=== PATIENT | male | born 1960 | race Caucasian/White ===

== ENCOUNTER 2023-02-28 20:07 | Emergency (ER) | payer OTHER ==
--- NOTE | 2023-02-28 20:13 | ERPHSYRPT ---
- History of Present Illness Time Seen by Provider: 02/28/23 20:13 Historian: patient, other Exam Limitations: no limitations Physician History: This is a 62-year-old white male patient who presents with left side flank pain that has been present for approximately 1 week and is getting worse. In the last 2 days the pain has moved into the left lower quadrant left groin area. Patient has no known history of ureterolithiasis in the past. He is on Plavix. He does have a history of hypertension and hyperlipidemia and is on Flomax daily. Patient denies chest pain. He denies shortness of breath. He denies vomiting and diarrhea. Activities at Onset: none Quality: sharpness, stabbing Abdominal Pain Onset Location: LLQ, flank (Left side) Pain Radiation: LLQ Severity of Pain-Max: moderate Severity of Pain-Current: moderate Modifying Factors: Improves With: nothing Associated Symptoms: denies symptoms Previous symptoms: no prior history Allergies/Adverse Reactions: No Known Drug Allergies Allergy (Unverified 02/28/23 20:33) Home Medications: Albuterol Sulfate [Proair Respiclick] 2 puffs IH Q6H PRN PRN 02/28/23 [History] Amlodipine Besylate 10 mg PO DAILY 02/28/23 [History] Aspirin 1 tab PO DAILY 02/28/23 [History] Atorvastatin Calcium 1 tab PO DAILY 02/28/23 [History] Clopidogrel Bisulfate [Clopidogrel] 1 tab PO DAILY 02/28/23 [History] Gabapentin 1,600 mg PO HS 02/28/23 [History] Gabapentin 800 mg PO BID 02/28/23 [History] Lisinopril 10 mg [Zestril 10 MG] 1 tab PO DAILY 02/28/23 [History] Metoprolol Succinate 100 mg [Toprol Xl 100 MG] 100 mg PO DAILY 02/28/23 [History] Sertraline HCl [Zoloft] 25 mg PO DAILY 02/28/23 [History] Tamsulosin HCl 0.4 mg [Flomax 0.4 MG] 1 tab PO DAILY 02/28/23 [History] Topiramate 25 mg PO DAILY 02/28/23 [History] Travel Risk - International Travel Have you traveled outside of the country in past 3 weeks: No - Coronavirus Screening Are you exhibiting any of the following symptoms?: No Close contact with a COVID-19 positive Pt in past 14-21 Days: No - Review of Systems Constitutional: No Symptoms Eyes: No Symptoms Ears, Nose, & Throat: No Symptoms Respiratory: No Symptoms Cardiac: No Symptoms Abdominal/Gastrointestinal: Abdominal Pain Genitourinary Symptoms: Hematuria, Flank Pain (Lower quadrant left flank) Skin: No Symptoms Neurological: No Symptoms Psychological: No Symptoms Endocrine: No Symptoms Hematologic/Lymphatic: No Symptoms Immunological/Allergic: No Symptoms All Other Systems: Reviewed and Negative - Past Medical History Pertinent Past Medical History: Yes - Past Surgical History Past Surgical History: Yes - Nursing Vital Signs Nursing Vital Signs: Initial Vital Signs Temperature 98.0 F 02/28/23 20:21 Pulse Rate 50 L 02/28/23 20:21 Respiratory Rate 18 02/28/23 20:21 Blood Pressure 160/84 02/28/23 20:21 O2 Sat by Pulse Oximetry 97 02/28/23 20:21 Pain Scale Pain Intensity [Left Lower 8 Abdomen] Pain Intensity 10 - Physical Exam General Appearance: mild distress, alert, anxiety, thin Eye Exam: PERRL/EOMI, eyes nml inspection Ears, Nose, Throat Exam: normal ENT inspection, moist mucous membranes Neck Exam: normal inspection, non-tender, supple, full range of motion Respiratory Exam: normal breath sounds, lungs clear, airway intact, No chest tenderness, No respiratory distress Cardiovascular Exam: regular rate/rhythm, normal heart sounds, normal peripheral pulses Gastrointestinal/Abdomen Exam: soft, normal bowel sounds, tenderness (Left lower quadrant), guarding Rectal Exam: deferred Back Exam: normal inspection, normal range of motion, CVA tenderness, No vertebral tenderness (Left side) Extremity Exam: normal inspection, normal range of motion, pelvis stable Neurologic Exam: alert, oriented x 3, cooperative, 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, normal mood/affect, nml cerebellar function, nml station & gait, sensation nml Skin Exam: normal color, warm, dry Lymphatic Exam: No adenopathy SpO2 Interpretation: normal O2 Delivery: Room Air - Course Nursing assessment & vital signs reviewed: Yes Ordered Tests: Active Orders 24 hr Category Date Time Status IV Insertion STAT Care 02/28/23 20:36 Active ABDOMEN AND PELVIS W/0 CONTRAS [CT] Stat Exams 02/28/23 20:37 Completed AMYLASE Stat Lab 02/28/23 20:51 Completed CBC W DIFF Stat Lab 02/28/23 20:51 Completed CMP Stat Lab 02/28/23 20:51 Completed LIPASE Stat Lab 02/28/23 20:51 Completed UA W/RFX UR CULTURE Stat Lab 02/28/23 20:56 Completed Medication Summary Discontinued Medications Generic Name Dose Route Start Last Admin Trade Name Seb PRN Reason Stop Dose Admin Hydromorphone HCl 0.5 mg 02/28/23 21:12 02/28/23 21:23 Hydromorphone 1 Mg/1ml Inj IV 02/28/23 21:13 0.5 mg STAT ONE Administration Hydromorphone HCl Confirm 02/28/23 21:14 Hydromorphone 1 Mg/1ml Inj Administered 02/28/23 21:15 Dose 1 mg .ROUTE .STK-MED ONE Sodium Chloride Confirm 02/28/23 20:51 Sodium Chloride 0.9% 1000 Ml Administered 02/28/23 20:52 Dose 1,000 mls @ ud .ROUTE .STK-MED ONE Ondansetron HCl 4 mg 02/28/23 21:12 02/28/23 21:23 Ondansetron Hcl 4 Mg/2 Ml Vial IV 02/28/23 21:13 4 mg STAT ONE Administration Ondansetron HCl Confirm 02/28/23 21:13 Ondansetron Hcl 4 Mg/2 Ml Vial Administered 02/28/23 21:14 Dose 4 mg .ROUTE .STK-MED ONE Lab/Rad Data: Laboratory Result Diagrams 02/28/23 20:51 02/28/23 20:51 Laboratory Results 02/28/23 02/28/23 02/28/23 Range/Units 20:56 20:51 20:51 WBC 7.2 (4.0-10.5) x10^3/uL RBC 4.33 (4.1-5.6) x10^6/uL Hgb 13.3 (12.5-18.0) g/dL Hct 39.7 L (42-50) % MCV 91.7 (78-100) fL MCH 30.7 (26-32) pg MCHC 33.5 (32-36) g/dL RDW 14.2 H (11.5-14.0) % Plt Count 212 (150-450) x10^3/uL MPV 10.8 (7.5-11.0) fL Gran % 64.6 (36.0-66.0) % Immature Gran % (Auto) 0.3 (0.00-0.4) % Nucleat RBC Rel Count 0.0 (0.00-0.1) % Eos # (Auto) 0.30 (0-0.5) x10^3/uL Immature Gran # (Auto) 0.02 (0.00-0.03) x10^3u/L Absolute Lymphs (auto) 1.54 (1.0-4.6) x10^3/uL Absolute Monos (auto) 0.60 (0.0-1.3) x10^3/uL Absolute Nucleated RBC 0.00 (0.00-0.01) x10^3u/L Lymphocytes % 21.4 L (24.0-44.0) % Monocytes % 8.3 (0.0-12.0) % Eosinophils % 4.2 (0.00-5.0) % Basophils % 1.2 (0.0-0.4) % Absolute Granulocytes 4.66 (1.4-6.9) x10^3/uL Basophils # 0.09 (0-0.4) x10^3/uL Sodium 141 (137-145) mmol/L Potassium 3.7 (3.5-5.1) mmol/L Chloride 110 H (98-107) mmol/L Carbon Dioxide 21 L (22-30) mmol/L Anion Gap 14.2 (5-15) MEQ/L BUN 20 (9-20) mg/dL Creatinine 1.33 H (0.66-1.25) mg/dL Estimated GFR 57.5 ML/MIN Glucose 108 H (74-106) mg/dL Calcium 8.7 (8.4-10.2) mg/dL Total Bilirubin 0.50 (0.2-1.3) mg/dL AST 24 (17-59) U/L ALT 18 (0-50) U/L Alkaline Phosphatase 92 (38-126) U/L Serum Total Protein 6.8 (6.3-8.2) g/dL Albumin 3.8 (3.5-5.0) g/dL Amylase 91 (30-110) U/L Lipase 233 (23-300) U/L Urine Color Dark Yellow (Yellow) Urine Appearance Clear (Clear) Urine pH 5.5 (4.6-8.0) Ur Specific [place] >=1.030 A (1.005-1.030) Urine Protein Trace A (Negative) Urine Glucose (UA) Negative (Negative) mg/dL Urine Ketones Negative (Negative) Urine Blood Negative (Negative) Urine Nitrite Negative (Negative) Urine Bilirubin Negative (Negative) Urine Urobilinogen 1.0 A (0.2) mg/dL Ur Leukocyte Esterase Negative (Negative) U Hyaline Cast (Auto) NONE SEEN (0-2) /LPF Urine Microscopic RBC 0-2 (0-5) /HPF Urine Microscopic WBC 0-2 (0-5) /HPF Ur Epithelial Cells None Seen (None Seen) /HPF Urine Bacteria None Seen (None Seen) /HPF Urine Culture Reflexed NO (NO) - Progress Progress: improved, pain not gone completely, re-examined Progress Note: 02/28/23 22:27 CAT scan of the abdomen pelvis without contrast shows a few enlarged left para-a ortic lymph nodes present. The largest measures 1.2 cm and requires follow-up. No other acute intra-abdominal or intrapelvic findings noted. This patient's medical issue is 1 of moderate complexity. The level of complexity and the work-up performed is based on the review of the patient's past medical history, review of the patient's medication list, review of the patient's drug allergy list, history present illness and physical findings on examination. The work-up includes CT scan of the abdomen pelvis, placement of intravenous line, infusion of normal saline solution, infusion of Zofran intravenously, infusion of Dilaudid pain medicine intravenously, CBC, CMP, amylase, lipase, urinalysis. I reviewed the above-stated results of the studies performed. There is no evidence of any acute, emergent evaluation. There is adenopathy present intra-abdominal he and this finding requires follow-up. I discussed this with the patient and his family. Medical Desision Making - Independent Historian Additional History obtained from: Child - Discussion of managment Agreed on:: Treatment plan, need for follow-up - Diagnostic Testing Diagnostic test were ordered, analyzed, and reviewed by me: Yes Radiological Interpretation: Reviewed by me, Teleradiologist Report - Risk of complications Low Risk: Low risk of morbidity from additional dx testing or treatment - Departure Departure Disposition: Home Clinical Impression: Abdominal pain, Flank pain, Intra-abdominal lymphadenopathy Condition: Stable Critical Care Time: No Referrals: Provider,Unknown [Primary Care Provider] - Follow up/PCP as directed Additional Instructions: Take your medications as prescribed. Call your primary care physician on 03/02/2023 to discuss your symptoms and the findings of swollen, enlarged lymph nodes in the abdominal cavity.
[2023-02-28] MEDS ORDERED: Sodium Chloride 0.9% 1000 ML 1,000 ML ONE (20:51)
[2023-02-28 20:56] LABS: Absolute Neutrophil Ct (ANC) 4.66 x10^3/uL (1.4-6.9); BASOPHIL % 1.2 % (0.0-0.4); Basophil (Absolute #) 0.09 x10^3/uL (0-0.4); Eosinophil % 4.2 % (0.00-5.0); Hematocrit 39.7 % (42-50); Hemoglobin 13.3 g/dL (12.5-18.0); IMMATURE GRAN # 0.02 x10^3u/L (0.00-0.03); IMMATURE GRAN % 0.3 % (0.00-0.4); Lymphocyte (Absolute #) 1.54 x10^3/uL (1.0-4.6); Lymphocytes % 21.4 % (24.0-44.0); Mean Cell Volume 91.7 fL (78-100); Mean Corpuscular Hemoglobin 30.7 pg (26-32); Mean Corpuscular Hgb Concent. 33.5 g/dL (32-36); Mean Platelet Volume 10.8 fL (7.5-11.0); Monocytes % 8.3 % (0.0-12.0); Neutrophil % 64.6 % (36.0-66.0); Platelet Count 212 x10^3/uL (150-450); Red Blood Count 4.33 x10^6/uL (4.1-5.6); Red Cell Distribution Width 14.2 % (11.5-14.0); White Blood Count 7.2 x10^3/uL (4.0-10.5)
[2023-02-28 21:06] LABS: Appearance Clear (Clear); Bacteria None Seen /HPF (None Seen); Bilirubin Negative (Negative); Blood Negative (Negative); Epithelial Cells None Seen /HPF (None Seen); Glucose, Urine Negative (Negative); Hyaline Casts NONE SEEN /LPF (0-2); Ketones Negative (Negative); Leukocyte Esterase Negative (Negative); Nitrite Negative (Negative); Ph 5.5 (4.6-8.0); Protein,Urine Dip Trace (Negative); RBC 0-2 /HPF (0-5); Specific Gravity >=1.030 (1.005-1.030); WBC 0-2 /HPF (0-5)
[2023-02-28 21:10] LABS: ALBUMIN 3.8 g/dL (3.5-5.0); ANION GAP 14.2 MEQ/L (5-15); BILIRUBIN,TOTAL 0.5 mg/dL (0.2-1.3); Calcium 8.7 mg/dL (8.4-10.2); Creatinine 1 1.33 mg/dL (0.66-1.25); EST GLOMERULAR FILTRATION RATE 57.5 ML/MIN; Potassium 3.7 mmol/L (3.5-5.1); Total Protein 6.8 g/dL (6.3-8.2)
[2023-02-28] MEDS ORDERED: Zofran 4 MG/2 ML VIAL IV ONE (21:12)
[2023-02-28] MEDS ORDERED: Hydromorphone 1 mg/ml Injection IV ONE (21:12)
[2023-02-28] MEDS ORDERED: Zofran 4 MG/2 ML VIAL ONE (21:13)
[2023-02-28] MEDS ORDERED: Hydromorphone 1 mg/ml Injection ONE (21:14)
[2023-02-28 21:16] LABS: ADD URINE CULTURE? NO (NO)
--- NOTE | 2023-02-28 21:54 | XRAY ---
CLINICAL HISTORY:LLQ abd and left flank pain; COMPARISON:None; TECHNIQUES:CT of the abdomen and pelvis was performed with axial images as well as sagittal and coronal reconstruction images without intravenous contrast. DLP: 285.66 mGy*cm. CTDI: 6.39 mGy; FINDINGS: The liver is normal in size, morphology and appears unremarkable with no intrahepatic or extrahepatic bile duct dilation. Unremarkable appearing gallbladder with no stones wall thickening or pericholecystic inflammatory changes or fluid. Unremarkable appearing pancreas. No pancreatic mass or ductal dilatation is seen. Unremarkable appearing spleen. The adrenal glands are normal. The kidneys appear unremarkable with no calculi, masses or hydronephrosis. A simple cortical cyst is noted at the mid pole of left kidney measuring 1.4 cm. The ureters are normal with no stones. Mild atherosclerotic changes in the abdominal aorta without specific evidence of aneurysm or dissection. IVC is normal. The stomach appears unremarkable. Unremarkable appearing duodenum. Small Bowel and colon are non-distended with no abnormality. No free air and no ascites. No free intraperitoneal air is seen. Enlarged left para aortic lymph nodes are noted, the largest measures 1.2 cm in short axis. No pelvic side wall lymphadenopathy. Streak artifact from the hardware prosthesis at the pubic symphysis is limiting the underlying pelvis details. Urinary bladder and prostate are grossly normal. A calcified granuloma in right lower lung. Mild degenerative changes seen in the visualized spine. IMPRESSION: Few enlarged left para-aortic lymph nodes are noted, the largest measures 1.2 cm in short axis, requires follow-up. Small left simple renal cortical cyst. Streak artefact from the hardware prosthesis at the pubic symphysis is limiting the underlying pelvis details. Urinary bladder and prostate are grossly normal. Electronically Signed by: Jv Zacarias MD. (02/28/2023 20:51:15 PHLEBOTOMY PROGRAM COORDINATOR)
[2023-02-28] MEDS ORDERED: NORCO 5/325 MG PO ONE (22:30)
[2023-02-28] MEDS ORDERED: NORCO 5/325 MG ONE (22:33)
[2023-02-28 22:41] VITALS: BP 145/85; PULSE 58; O2SAT 93
== END 2023-02-28 22:45 | disposition home or self-care (01) ==
LOC: ED 20:07
DX: R10.32 Left lower quadrant pain (principal); R59.1 Generalized enlarged lymph nodes; I10 Essential (primary) hypertension; E78.5 Hyperlipidemia, unspecified; Z79.01 Long term (current) use of anticoagulants; Z79.899 Other long term (current) drug therapy; Z20.828 Contact with and (suspected) exposure to other viral communicable diseases
CPT/HCPCS: 36000; 36415; 74176; 80053; 81001; 82150; 83690; 85025; 96374; 96375; 99284; J1170; J2405; A9270-GY

== ENCOUNTER 2024-02-14 23:13 | Inpatient (IN) | payer MEDICARE ==
[2024-02-15] MEDS ORDERED: Robitussin AC Syrup Unit Dose Cup PO PRN (00:01)
--- NOTE | 2024-02-15 00:03 | ERPHSYRPT ---
- History of Present Illness Time Seen by Provider: 02/14/24 23:50 Source: patient, family (daughter) Exam Limitations: no limitations Patient Subjective Stated Complaint: cough and chest discomfort from coughing x2 days Triage Nursing Assessment: pt ambulated into ER without diff, daughter at bedside. Pt is alert and oriented x4. Pt c/o cough with increased sob x2 days and chest discomfort when coughing. Pt has a dry, non-prod cough. Pt's lung cordero are coarse with rhonchi, wheezes and crackles noted bilat ant and post throughout. Pt is a 1ppd smoker x50 years. Physician History: Since yesterday pt has had a non-productive cough, mid chest pain only when coughing and shortness of air. Pt also c/o a frontal headache for the past 2 hours; denies vomiting, fever, diarrhea, abdominal pain. Allergies/Adverse Reactions: No Known Drug Allergies Allergy (Verified 02/14/24 23:15) Home Medications: Albuterol Sulfate [Proair Respiclick] 2 puffs IH Q6H PRN PRN 02/28/23 [History] Amlodipine Besylate 10 mg PO DAILY 02/28/23 [History] Aspirin 1 tab PO DAILY 02/28/23 [History] Atorvastatin Calcium 1 tab PO DAILY 02/28/23 [History] Clopidogrel Bisulfate [Clopidogrel] 1 tab PO DAILY 02/28/23 [History] Gabapentin 800 mg PO TID 02/28/23 [History] Lisinopril 10 mg [Zestril 10 MG] 1 tab PO DAILY 02/28/23 [History] Metoprolol Succinate 100 mg [Toprol Xl 100 MG] 100 mg PO DAILY 02/28/23 [History] Sertraline HCl [Zoloft] 25 mg PO DAILY 02/28/23 [History] Tamsulosin HCl 0.4 mg [Flomax 0.4 MG] 1 tab PO DAILY 02/28/23 [History] Topiramate 25 mg PO HS 02/28/23 [History] Levothyroxine Sodium 88 Mcg [Synthroid 88 Mcg] 1 tab PO DAILY 02/14/24 [History] Hx Tetanus, Diphtheria Vaccination/Date Given: Yes Hx Influenza Vaccination/Date Given: Yes Hx Pneumococcal Vaccination/Date Given: Yes Immunizations Up to Date: Yes Travel Risk - International Travel Have you traveled outside of the country in past 3 weeks: No - Emerging Infectious Disease Are you exhibiting symptoms associated with any current EIDs: No Symptoms: Cough: New Onset - Review of Systems Constitutional: No Fever Respiratory: Cough, Dyspnea Cardiac: Chest Pain Abdominal/Gastrointestinal: No Abdominal Pain, No Vomiting Skin: No Rash Neurological: Headache - Past Medical History Pertinent Past Medical History: Yes Neurological History: Stroke ENT History: No Pertinent History Cardiac History: Coronary Artery Disease, Hypertension, Myocardial Infarction ([place]) Respiratory History: Pneumonia Endocrine Medical History: No Pertinent History Musculoskeletal History: Arthritis, Fractures GI Medical History: GERD History: No Pertinent History Psycho-Social History: No Pertinent History Male Reproductive Disorders: No Pertinent History Other Medical History: fx pelvis. fx L3 - Past Surgical History Past Surgical History: Yes Neuro Surgical History: No Pertinent History Cardiac: Cardiac Catheterization, Internal Defibrillator Respiratory: No Pertinent History Gastrointestinal: No Pertinent History Genitourinary: No Pertinent History Musculoskeletal: Orthopedic Surgery Male Surgical History: No Pertinent History Other Surgical History: pelvic surgery with metal rods and screws. L3 surgery - Social History Smoking Status: Current every day smoker How long have you smoked: 50 yrs Exposure to second hand smoke: Yes Drug Use: marijuana Patient Lives Alone: No - Nursing Vital Signs Nursing Vital Signs: Initial Vital Signs Temperature 98.1 F 02/14/24 23:17 Pulse Rate 60 02/14/24 23:17 Respiratory Rate 28 H 02/14/24 23:17 Blood Pressure 184/88 02/14/24 23:17 O2 Sat by Pulse Oximetry 97 02/14/24 23:17 Pain Scale Pain Intensity 2 - Physical Exam General Appearance: alert Eye Exam: PERRL/EOMI Ears, Nose, Throat Exam: pharyngeal erythema, other (cerumen occlusion of left ear) Neck Exam: normal inspection Respiratory Exam: respiratory distress, airway intact, wheezing Cardiovascular Exam: normal heart sounds Gastrointestinal/Abdomen Exam: normal bowel sounds Back Exam: normal inspection Extremity Exam: No pedal edema Neurologic Exam: alert, cooperative Skin Exam: warm, dry SpO2 Interpretation: normal SpO2: 97 O2 Delivery: Room Air - Course Nursing assessment & vital signs reviewed: Yes EKG Interpreted by Me: RATE (52), Sinus Abe[place], NORMAL AXIS, Other (QTc = 382) - Radiology Exams Chest X-ray Interpretation: Interpreted by me (pneumonia) Ordered Tests: Active Orders 24 hr Category Date Time Status Taxicab Dispatcher STAT Care 02/14/24 23:59 Active EKG-ER Only STAT Care 02/14/24 23:58 Active IV Insertion STAT Care 02/14/24 23:58 Active Oxygen-ED Only Nasal Cannula 2 lpm Care 02/14/24 23:58 Active Pulse Oximetry (ED) STAT Care 02/14/24 23:58 Active CHEST 2 VIEWS (PA AND LAT) Stat Exams 02/14/24 23:59 Taken CULTURE,SPUTUM Stat Lab 02/14/24 23:59 Ordered TROPONIN Q4H Lab 02/15/24 00:07 Completed TROPONIN Q4H Lab 02/15/24 04:15 Ordered TROPONIN Q4H Lab 02/15/24 08:15 Ordered VENOUS BLOOD GAS Stat Lab 02/14/24 23:58 Completed Respiratory Therapy Assessment DAILY RT 02/15/24 00:09 Active Medication Summary Generic Name Dose Route Start Last Admin Trade Name Freq PRN Reason Stop Dose Admin Guaifenesin/Codeine Phosphate 10 ml 02/15/24 00:01 Guaifenesin/Codeine Phosphate 5 Ml Udcup PO 03/16/24 00:00 Q4H PRN PRN COUGH Sodium Chloride 1,000 mls @ 100 mls/hr 02/14/24 23:45 02/15/24 00:14 Sodium Chloride 0.9% 1000 Ml IV 03/15/24 23:44 100 mls/hr .Q10H PLACIDO Administration Discontinued Medications Generic Name Dose Route Start Last Admin Trade Name Freq PRN Reason Stop Dose Admin Albuterol Sulfate 2.5 mg 02/14/24 23:58 02/15/24 00:10 Albuterol Sulfate 2.5 Mg/3 Ml Neb IH 02/14/24 23:59 2.5 mg STAT ONE Administration Albuterol Sulfate Confirm 02/15/24 00:06 Albuterol Sulfate 2.5 Mg/3 Ml Neb Administered 02/15/24 00:07 Dose 2.5 mg IH .STK-MED ONE Ceftriaxone Sodium 1 gm in 100 mls @ 200 mls/hr 02/14/24 23:58 02/15/24 00:54 Rocephin 1 Gm / 100 Ml Nacl IV 02/15/24 00:27 Infused STAT ONE Infusion Azithromycin 500 mg in 250 mls @ 250 mls/hr 02/14/24 23:58 02/15/24 00:47 Zithromax 500 Mg/ 250 Ml Nacl Premix IV 02/15/24 00:57 250 ml/hr STAT STA 250 mls/hr Administration Ceftriaxone Sodium Confirm 02/15/24 00:12 Rocephin 1 Gm / 100 Ml Nacl Administered 02/15/24 00:13 Dose 1 gm in 100 mls @ ud IV .STK-MED ONE Azithromycin Confirm 02/15/24 00:43 Zithromax 500 Mg/ 250 Ml Nacl Premix Administered 02/15/24 00:44 Dose 500 mg in 250 mls @ ud IV .STK-MED ONE Lab/Rad Data: Laboratory Result Diagrams 02/14/24 00:07 02/14/24 00:07 Laboratory Results 02/15/24 02/15/24 02/15/24 Range/Units 00:20 00:15 00:15 WBC (4.0-10.5) x10^3/uL RBC (4.1-5.6) x10^6/uL Hgb (12.5-18.0) g/dL Hct (42-50) % MCV (78-100) fL MCH (26-32) pg MCHC (32-36) g/dL RDW (11.5-14.0) % Plt Count (150-450) x10^3/uL MPV (7.5-11.0) fL Gran % (36.0-66.0) % Immature Gran % (Auto) (0.00-0.4) % Nucleat RBC Rel Count (0.00-0.1) % Eos # (Auto) (0-0.5) x10^3/uL Immature Gran # (Auto) (0.00-0.03) x10^3u/L Absolute Lymphs (auto) (1.0-4.6) x10^3/uL Absolute Monos (auto) (0.0-1.3) x10^3/uL Absolute Nucleated RBC (0.00-0.01) x10^3u/L Lymphocytes % (24.0-44.0) % Monocytes % (0.0-12.0) % Eosinophils % (0.00-5.0) % Basophils % (0.0-0.4) % Absolute Granulocytes (1.4-6.9) x10^3/uL Basophils # (0-0.4) x10^3/uL pO2/FiO2 Ratio 21.0 % VBG pH 7.40 (7.32-7.42) VBG pCO2 at Pat Temp 35 L (42-55) mm/Hg VBG pO2 at Pat Temp 48 H (25-40) mm/Hg VBG HCO3 21.7 L (22-28) meq/L VBG O2 Sat (Buddy) 86.3 L (95-100) VBG Base Excess -2.5 L (-2.0-2.0) VBG Hemoglobin 14.0 VBG Carboxyhemoglobin 7.0 H* (0.0-6.9) % T HGB POC Potassium 3.2 L (3.5-5.1) Sodium (135-145) mmol/L Potassium (3.5-5.1) mmol/L Chloride (98-107) mmol/L Carbon Dioxide (22-30) mmol/L Anion Gap (5-15) MEQ/L BUN (9-20) mg/dL Creatinine (0.66-1.25) mg/dL Estimated GFR ML/MIN Glucose (74-106) mg/dL Calcium (8.4-10.2) mg/dL Total Bilirubin (0.2-1.3) mg/dL AST (17-59) U/L ALT (0-50) U/L Alkaline Phosphatase (38-126) U/L Troponin I (0.000-0.033) ng/mL Serum Total Protein (6.3-8.2) g/dL Albumin (3.5-5.0) g/dL Influenza Type A Ag NEGATIVE (NEGATIVE) Influenza Type B Ag NEGATIVE (NEGATIVE) RSV (PCR) NEGATIVE (NEGATIVE) SARS-CoV-2 (PCR) NEGATIVE (NEGATIVE) Group A Strep Antibody NOT DETECTED (NEGATIVE) 02/15/24 02/14/24 02/14/24 Range/Units 00:07 00:07 00:07 WBC 8.3 (4.0-10.5) x10^3/uL RBC 4.49 (4.1-5.6) x10^6/uL Hgb 14.0 (12.5-18.0) g/dL Hct 40.6 L (42-50) % MCV 90.4 (78-100) fL MCH 31.2 (26-32) pg MCHC 34.5 (32-36) g/dL RDW 14.1 H (11.5-14.0) % Plt Count 207 (150-450) x10^3/uL MPV 11.0 (7.5-11.0) fL Gran % 69.3 H (36.0-66.0) % Immature Gran % (Auto) 0.2 (0.00-0.4) % Nucleat RBC Rel Count 0.0 (0.00-0.1) % Eos # (Auto) 0.22 (0-0.5) x10^3/uL Immature Gran # (Auto) 0.02 (0.00-0.03) x10^3u/L Absolute Lymphs (auto) 1.61 (1.0-4.6) x10^3/uL Absolute Monos (auto) 0.66 (0.0-1.3) x10^3/uL Absolute Nucleated RBC 0.00 (0.00-0.01) x10^3u/L Lymphocytes % 19.3 L (24.0-44.0) % Monocytes % 7.9 (0.0-12.0) % Eosinophils % 2.6 (0.00-5.0) % Basophils % 0.7 (0.0-0.4) % Absolute Granulocytes 5.76 (1.4-6.9) x10^3/uL Basophils # 0.06 (0-0.4) x10^3/uL pO2/FiO2 Ratio % VBG pH (7.32-7.42) VBG pCO2 at Pat Temp (42-55) mm/Hg VBG pO2 at Pat Temp (25-40) mm/Hg VBG HCO3 (22-28) meq/L VBG O2 Sat (Buddy) (95-100) VBG Base Excess (-2.0-2.0) VBG Hemoglobin VBG Carboxyhemoglobin (0.0-6.9) % T HGB POC Potassium (3.5-5.1) Sodium 142 (135-145) mmol/L Potassium 3.5 (3.5-5.1) mmol/L Chloride 112 H (98-107) mmol/L Carbon Dioxide 18 L (22-30) mmol/L Anion Gap 15.0 (5-15) MEQ/L BUN 18 (9-20) mg/dL Creatinine 1.22 (0.66-1.25) mg/dL Estimated GFR 65.8 ML/MIN Glucose 118 H (74-106) mg/dL Calcium 9.1 (8.4-10.2) mg/dL Total Bilirubin 0.80 (0.2-1.3) mg/dL AST 25 (17-59) U/L ALT 20 (0-50) U/L Alkaline Phosphatase 90 (38-126) U/L Troponin I < 0.012 (0.000-0.033) ng/mL Serum Total Protein 6.9 (6.3-8.2) g/dL Albumin 4.0 (3.5-5.0) g/dL Influenza Type A Ag (NEGATIVE) Influenza Type B Ag (NEGATIVE) RSV (PCR) (NEGATIVE) SARS-CoV-2 (PCR) (NEGATIVE) Group A Strep Antibody (NEGATIVE) - Progress Progress: improved Discussed with : Other (Spoke with and discussed case with Dr. Ritter([id number]) - obs) Will see patient in: hospital (observation) Counseled pt/family regarding: lab results, diagnosis, rad results Medical Desision Making - Diagnostic Testing Diagnostic test were ordered, analyzed, and reviewed by me: Yes Radiological Interpretation: Interpreted by me - Departure Departure Disposition: Observation Clinical Impression: Respiratory distress, Pneumonia Condition: Stable Critical Care Time: No Referrals: DOCTOR,NO FAMILY [Primary Care Provider] - Follow up/PCP as directed
[2024-02-15] MEDS ORDERED: PROVENTIL 2.5 MG/3 ML NEB IH ONE (00:06)
[2024-02-15 00:09] LABS: Absolute Neutrophil Ct (ANC) 5.76 x10^3/uL (1.4-6.9); BASOPHIL % 0.7 % (0.0-0.4); Basophil (Absolute #) 0.06 x10^3/uL (0-0.4); Eosinophil % 2.6 % (0.00-5.0); Eosinophil (Absolute #) 0.22 x10^3/uL (0-0.5); Hematocrit 40.6 % (42-50); IMMATURE GRAN # 0.02 x10^3u/L (0.00-0.03); IMMATURE GRAN % 0.2 % (0.00-0.4); Lymphocyte (Absolute #) 1.61 x10^3/uL (1.0-4.6); Lymphocytes % 19.3 % (24.0-44.0); Mean Cell Volume 90.4 fL (78-100); Mean Corpuscular Hemoglobin 31.2 pg (26-32); Mean Corpuscular Hgb Concent. 34.5 g/dL (32-36); Monocyte (Absolute #) 0.66 x10^3/uL (0.0-1.3); Monocytes % 7.9 % (0.0-12.0); Neutrophil % 69.3 % (36.0-66.0); Platelet Count 207 x10^3/uL (150-450); Red Blood Count 4.49 x10^6/uL (4.1-5.6); Red Cell Distribution Width 14.1 % (11.5-14.0); White Blood Count 8.3 x10^3/uL (4.0-10.5)
[2024-02-15] MEDS: PROVENTIL 2.5 MG/3 ML NEB IH ONE (00:10)
[2024-02-15] MEDS ORDERED: ROCEPHIN 1 GM / 100 ML NaCl 1 GM/100 ML IVPB IV ONE (00:12)
[2024-02-15] MEDS: Sodium Chloride 0.9% 1000 ML 1,000 ML IV SCH (00:14)
[2024-02-15 00:16] LABS: BILIRUBIN,TOTAL 0.8 mg/dL (0.2-1.3); Calcium 9.1 mg/dL (8.4-10.2); Creatinine 1 1.22 mg/dL (0.66-1.25); EST GLOMERULAR FILTRATION RATE 65.8 ML/MIN; Potassium 3.5 mmol/L (3.5-5.1); Total Protein 6.9 g/dL (6.3-8.2)
[2024-02-15] MEDS: ROCEPHIN 1 GM / 100 ML NaCl 1 GM/100 ML IVPB IV ONE (00:17)
[2024-02-15 00:30] LABS: VBG BASE EXCESS -2.5 (-2.0-2.0); VBG HCO3- 21.7 meq/L (22-28); VBG O2 SATURATION 86.3 (95-100); VBG POTASSIUM 3.2 (3.5-5.1); VBG pH 7.4 (7.32-7.42)
[2024-02-15] MEDS ORDERED: Zithromax 500 MG/ 250 ML NaCl Premix 500 MG/250 ML IVPB IV ONE (00:43)
[2024-02-15] MEDS: Zithromax 500 MG/ 250 ML NaCl Premix 500 MG/250 ML IVPB IV STA (00:47)
[2024-02-15 01:00] LABS: INFLUENZA A NEGATIVE (NEGATIVE); INFLUENZA B NEGATIVE (NEGATIVE); RESPIRATORY SYNCTIAL VIRUS NEGATIVE (NEGATIVE); SARS-CoV-2 Xpert Express NEGATIVE (NEGATIVE)
--- NOTE | 2024-02-15 02:09 | PCM.HP ---
History of Present Illness - Chief Complaint Chief Complaint: cough Date: 02/15/24 History of Present Illness: Mr. MORENO is a 63 year old male with a past medical history significant for hypertension, hyperlipidemia, coronary artery disease, neuropathy and chronic tobacco use who presents to the hospital with complaints of worsening shortness of breath associated with some chest pain that is worsened with coughing. He denies any fever/chills but does report a headache for the past couple of days. He denies any productive sputum and upon initial eval, he was found to have some wheezing that persisted despite nebulizer treatment. Initial labs did not demonstrate an elevated WBC but did show a mildly elevated creatinine with low bicarb. No nausea, vomiting or diarrhea. No dysuria, hematuria or foamy urine. CXR demonstrated an infiltrate suspicious for pneumonia, so he was given antibiotics and recommended for admission. He does report having a friend come by a few days ago, and is now hospitalized with pneumonia. - Review of Systems Constitutional: No Fever, No Chills Eyes: No Vision Changes Ears, Nose, & Throat: No Throat Swelling Respiratory: Cough, No Orthopnea, No Stridor Cardiac: Chest Pain, No Edema, No Palpitations Abdominal/Gastrointestinal: No Abdominal Pain, No Nausea, No Vomiting, No Diarrhea Genitourinary Symptoms: No Dysuria, No Frequency, No Hematuria Musculoskeletal: No Arthralgias, No Neck Pain Skin: No Rash Neurological: Headache Psychological: No Suicidal Ideations Medications & Allergies Home Medications: Home Medication List Albuterol Sulfate [Proair Respiclick] 2 puffs IH Q6H PRN PRN 02/28/23 [History Confirmed 02/14/24] Amlodipine Besylate 10 mg PO DAILY 02/28/23 [History Confirmed 02/14/24] Aspirin 1 tab PO DAILY 02/28/23 [History Confirmed 02/14/24] Atorvastatin Calcium 1 tab PO DAILY 02/28/23 [History Confirmed 02/14/24] Clopidogrel Bisulfate [Clopidogrel] 1 tab PO DAILY 02/28/23 [History Confirmed 02/14/24] Gabapentin 800 mg PO TID 02/28/23 [History Confirmed 02/14/24] Lisinopril 10 mg [Zestril 10 MG] 1 tab PO DAILY 02/28/23 [History Confirmed 02/14/24] Metoprolol Succinate 100 mg [Toprol Xl 100 MG] 100 mg PO DAILY 02/28/23 [History Confirmed 02/14/24] Sertraline HCl [Zoloft] 25 mg PO DAILY 02/28/23 [History Confirmed 02/14/24] Tamsulosin HCl 0.4 mg [Flomax 0.4 MG] 1 tab PO DAILY 02/28/23 [History Confirmed 02/14/24] Topiramate 25 mg PO HS 02/28/23 [History Confirmed 02/14/24] Levothyroxine Sodium 88 Mcg [Synthroid 88 Mcg] 1 tab PO DAILY 02/14/24 [History Confirmed 02/14/24] Allergies/Adverse Reactions: Allergies Allergy/AdvReac Type Severity Reaction Status Date / Time No Known Drug Allergies Allergy Verified 02/14/24 23:15 - Past Medical History Past Medical History: Yes Neurological History: Stroke ENT History: No Pertinent History Cardiac History: Coronary Artery Disease, Hypertension, Myocardial Infarction ([place]) Respiratory History: Pneumonia Endocrine Medical History: No Pertinent History Musculoskelatal History: Arthritis, Fractures GI Medical History: GERD History: No Pertinent History Pyscho-Social History: No Pertinent History Male Reproductive Disorders: No Pertinent History Comment: fx pelvis. fx L3 - Past Surgical History Past Surgical History: Yes Neuro Surgical History: No Pertinent History Cardiac History: Cardiac Catheterization, Internal Defibrillator Respiratory Surgery: No Pertinent History GI Surgical History: No Pertinent History Genitourinary Surgical Hx: No Pertinent History Musculskeletal Surgical Hx: Orthopedic Surgery Male Surgical History: No Pertinent History Other Surgical History: pelvic surgery with metal rods and screws. L3 surgery - Social History Smoking Status: Current every day smoker How long have you smoked: 50 yrs Exposure to second hand smoke: Yes Alcohol: None Drug Use: marijuana - Social Determinants of Health Will the patient participate in the screening: Yes Do you worry about a steady place to live?: No Do you have any problems with any of the following?: No known problems In the past 12 months,have you had to go without utilities?: No Have you or anyone in your house had to go without enough: No Transportation Issues: No Has anyone in your support network made you feel unsafe?: No - Physical Exam Vital Signs: Vital Signs - 24 hr Temp Pulse Resp BP BP Pulse Ox 02/15/24 01:50 97 02/15/24 01:01 72 22 145/77 97 02/15/24 00:30 59 L 30 H 175/87 96 02/15/24 00:29 59 L 26 H 168/84 96 02/15/24 00:10 95 02/15/24 00:00 49 L 22 147/82 98 02/14/24 23:58 97 02/14/24 23:30 48 L 25 H 177/90 95 02/14/24 23:21 28 H 97 02/14/24 23:17 98.1 F 60 28 H 184/88 97 General Appearance: no apparent distress Neurologic Exam: alert Ears, Nose, Throat Exam: dry mucous membranes Neck Exam: normal inspection, supple Respiratory Exam: wheezing, No respiratory distress Cardiovascular Exam: regular rate/rhythm Gastrointestinal/Abdomen Exam: soft Extremity Exam: No pedal edema, No swelling Skin Exam: normal color, No rash Results - Labs Lab/Micro Results: Lab Results-Last 24 Hours 02/14/24 02/14/24 02/15/24 Range/Units 00:07 00:07 00:07 WBC 8.3 (4.0-10.5) x10^3/uL RBC 4.49 (4.1-5.6) x10^6/uL Hgb 14.0 (12.5-18.0) g/dL Hct 40.6 L (42-50) % MCV 90.4 (78-100) fL MCH 31.2 (26-32) pg MCHC 34.5 (32-36) g/dL RDW 14.1 H (11.5-14.0) % Plt Count 207 (150-450) x10^3/uL MPV 11.0 (7.5-11.0) fL Gran % 69.3 H (36.0-66.0) % Immature Gran % (Auto) 0.2 (0.00-0.4) % Nucleat RBC Rel Count 0.0 (0.00-0.1) % Eos # (Auto) 0.22 (0-0.5) x10^3/uL Immature Gran # (Auto) 0.02 (0.00-0.03) x10^3u/L Absolute Lymphs (auto) 1.61 (1.0-4.6) x10^3/uL Absolute Monos (auto) 0.66 (0.0-1.3) x10^3/uL Absolute Nucleated RBC 0.00 (0.00-0.01) x10^3u/L Lymphocytes % 19.3 L (24.0-44.0) % Monocytes % 7.9 (0.0-12.0) % Eosinophils % 2.6 (0.00-5.0) % Basophils % 0.7 (0.0-0.4) % Absolute Granulocytes 5.76 (1.4-6.9) x10^3/uL Basophils # 0.06 (0-0.4) x10^3/uL pO2/FiO2 Ratio % VBG pH (7.32-7.42) VBG pCO2 at Pat Temp (42-55) mm/Hg VBG pO2 at Pat Temp (25-40) mm/Hg VBG HCO3 (22-28) meq/L VBG O2 Sat (Buddy) (95-100) VBG Base Excess (-2.0-2.0) VBG Hemoglobin VBG Carboxyhemoglobin (0.0-6.9) % T HGB POC Potassium (3.5-5.1) Sodium 142 (135-145) mmol/L Potassium 3.5 (3.5-5.1) mmol/L Chloride 112 H (98-107) mmol/L Carbon Dioxide 18 L (22-30) mmol/L Anion Gap 15.0 (5-15) MEQ/L BUN 18 (9-20) mg/dL Creatinine 1.22 (0.66-1.25) mg/dL Estimated GFR 65.8 ML/MIN Glucose 118 H (74-106) mg/dL Calcium 9.1 (8.4-10.2) mg/dL Total Bilirubin 0.80 (0.2-1.3) mg/dL AST 25 (17-59) U/L ALT 20 (0-50) U/L Alkaline Phosphatase 90 (38-126) U/L Troponin I < 0.012 (0.000-0.033) ng/mL Serum Total Protein 6.9 (6.3-8.2) g/dL Albumin 4.0 (3.5-5.0) g/dL Influenza Type A Ag (NEGATIVE) Influenza Type B Ag (NEGATIVE) RSV (PCR) (NEGATIVE) SARS-CoV-2 (PCR) (NEGATIVE) Group A Strep Antibody (NEGATIVE) 02/15/24 02/15/24 02/15/24 Range/Units 00:15 00:15 00:20 WBC (4.0-10.5) x10^3/uL RBC (4.1-5.6) x10^6/uL Hgb (12.5-18.0) g/dL Hct (42-50) % MCV (78-100) fL MCH (26-32) pg MCHC (32-36) g/dL RDW (11.5-14.0) % Plt Count (150-450) x10^3/uL MPV (7.5-11.0) fL Gran % (36.0-66.0) % Immature Gran % (Auto) (0.00-0.4) % Nucleat RBC Rel Count (0.00-0.1) % Eos # (Auto) (0-0.5) x10^3/uL Immature Gran # (Auto) (0.00-0.03) x10^3u/L Absolute Lymphs (auto) (1.0-4.6) x10^3/uL Absolute Monos (auto) (0.0-1.3) x10^3/uL Absolute Nucleated RBC (0.00-0.01) x10^3u/L Lymphocytes % (24.0-44.0) % Monocytes % (0.0-12.0) % Eosinophils % (0.00-5.0) % Basophils % (0.0-0.4) % Absolute Granulocytes (1.4-6.9) x10^3/uL Basophils # (0-0.4) x10^3/uL pO2/FiO2 Ratio 21.0 % VBG pH 7.40 (7.32-7.42) VBG pCO2 at Pat Temp 35 L (42-55) mm/Hg VBG pO2 at Pat Temp 48 H (25-40) mm/Hg VBG HCO3 21.7 L (22-28) meq/L VBG O2 Sat (Buddy) 86.3 L (95-100) VBG Base Excess -2.5 L (-2.0-2.0) VBG Hemoglobin 14.0 VBG Carboxyhemoglobin 7.0 H* (0.0-6.9) % T HGB POC Potassium 3.2 L (3.5-5.1) Sodium (135-145) mmol/L Potassium (3.5-5.1) mmol/L Chloride (98-107) mmol/L Carbon Dioxide (22-30) mmol/L Anion Gap (5-15) MEQ/L BUN (9-20) mg/dL Creatinine (0.66-1.25) mg/dL Estimated GFR ML/MIN Glucose (74-106) mg/dL Calcium (8.4-10.2) mg/dL Total Bilirubin (0.2-1.3) mg/dL AST (17-59) U/L ALT (0-50) U/L Alkaline Phosphatase (38-126) U/L Troponin I (0.000-0.033) ng/mL Serum Total Protein (6.3-8.2) g/dL Albumin (3.5-5.0) g/dL Influenza Type A Ag NEGATIVE (NEGATIVE) Influenza Type B Ag NEGATIVE (NEGATIVE) RSV (PCR) NEGATIVE (NEGATIVE) SARS-CoV-2 (PCR) NEGATIVE (NEGATIVE) Group A Strep Antibody NOT DETECTED (NEGATIVE) Microbiology 02/14/24 23:59 Blood Culture Gram Stain - Final Blood Not Reportable - Radiology Impressions Radiology Exams & Impressions: Radiology Procedures Category Date Time Status CHEST 2 VIEWS (PA AND LAT) Stat Exams 02/14/24 23:59 Taken - Other Procedures and Tests Respiratory Therapy 02/15/24 00:09 Respiratory Therapy Assessment DAILY Assessment/Plan (1) Pneumonia Current Visit: No Status: Acute Assessment & Plan: Community acquired pneumonia likely exacerbated by tobacco use 1. Admit to observation status 2. Sputum culture 3. Empiric antibiotics with Rocephin/Zithromax 4. Supplemental oxygen 5. Duonebs 6. Tobacco cessation 7. DVT/GI prophylaxis Code(s): J18.9 - PNEUMONIA, UNSPECIFIED ORGANISM (2) Cough Current Visit: No Status: Acute Assessment & Plan: Likely from pneumonia but may also be exacerbated by JOHN 1. Duonebs 2. Tobacco cessation 3. Hold JOHN Code(s): R05.9 - COUGH, UNSPECIFIED (3) Acute kidney injury Current Visit: No Status: Acute Assessment & Plan: Creatinine slightly elevated at 1.18 may be due to prerenal azotemia but may also reflect underlying CKD from hypertension 1. Encourage PO intake 2. Follow I/Os 3. Watch electrolytes, creatinine closely Code(s): N17.9 - ACUTE KIDNEY FAILURE, UNSPECIFIED (4) Hypertensive chronic kidney disease with stage 1 through stage 4 chronic kidney disease, or unspecified chronic kidney disease Current Visit: No Status: Acute Assessment & Plan: Blood pressure under suboptimal control, likely exacerbated by stress 1. Continue bp meds except JOHN 2. Low Na diet 3. Monitor blood pressure readings Code(s): I12.9 - HYPERTENSIVE CHRONIC KIDNEY DISEASE W STG 1-4/UNSP CHR KDNY (5) Acute metabolic acidosis Current Visit: No Status: Acute Assessment & Plan: Bicarb 18 likely from SERGEY/CKD 1. Defer sodium bicarb therapy 2. ABG prn 3. Monitor bicarb level Code(s): E87.21 - ACUTE METABOLIC ACIDOSIS (6) Chest pain Current Visit: Yes Status: Acute Assessment & Plan: Suspect pleuritic pain exacerbated by cough, but does have a history of CAD 1. Trend cardiac enzymes 2. Tylenol prn 3. EKG prn chest pain Code(s): R07.9 - CHEST PAIN, UNSPECIFIED Telemedicine Encounter - Telemedicine Encounter Telemedicine Encounter: The entirety of this encounter was performed via Telemedicine"
[2024-02-15] MEDS ORDERED: Zofran 4 MG/2 ML VIAL IV PRN (02:22)
[2024-02-15] MEDS: ROCEPHIN 1 GM / 100 ML NaCl 1 GM/100 ML IVPB IV SCH ×2 (03:29→21:01)
[2024-02-15] MEDS: Robitussin AC Syrup Unit Dose Cup PO PRN (03:41)
[2024-02-15 04:34] LABS: Absolute Neutrophil Ct (ANC) 5.08 x10^3/uL (1.4-6.9); BASOPHIL % 0.6 % (0.0-0.4); Basophil (Absolute #) 0.04 x10^3/uL (0-0.4); Eosinophil % 2.5 % (0.00-5.0); Eosinophil (Absolute #) 0.18 x10^3/uL (0-0.5); Hematocrit 38.8 % (42-50); Hemoglobin 13.3 g/dL (12.5-18.0); IMMATURE GRAN # 0.02 x10^3u/L (0.00-0.03); IMMATURE GRAN % 0.3 % (0.00-0.4); Lymphocyte (Absolute #) 1.17 x10^3/uL (1.0-4.6); Lymphocytes % 16.5 % (24.0-44.0); Mean Cell Volume 88.4 fL (78-100); Mean Corpuscular Hemoglobin 30.3 pg (26-32); Mean Corpuscular Hgb Concent. 34.3 g/dL (32-36); Mean Platelet Volume 10.9 fL (7.5-11.0); Monocyte (Absolute #) 0.62 x10^3/uL (0.0-1.3); Monocytes % 8.7 % (0.0-12.0); Neutrophil % 71.4 % (36.0-66.0); Platelet Count 196 x10^3/uL (150-450); Red Blood Count 4.39 x10^6/uL (4.1-5.6); Red Cell Distribution Width 14.2 % (11.5-14.0); White Blood Count 7.1 x10^3/uL (4.0-10.5)
[2024-02-15 04:50] LABS: ALBUMIN 3.5 g/dL (3.5-5.0); ANION GAP 11.9 MEQ/L (5-15); BILIRUBIN,TOTAL 0.6 mg/dL (0.2-1.3); Calcium 8.5 mg/dL (8.4-10.2); Creatinine 1 1.08 mg/dL (0.66-1.25); EST GLOMERULAR FILTRATION RATE 76.2 ML/MIN; Potassium 3.2 mmol/L (3.5-5.1); Total Protein 6.3 g/dL (6.3-8.2)
[2024-02-15] MEDS: PROVENTIL 2.5 MG/3 ML NEB IH SCH (07:05)
[2024-02-15] MEDS: DUONEB 0.5-3 MG/3 ml Neb IH SCH (07:05)
--- NOTE | 2024-02-15 08:42 | XRAY ---
Indication: Cough and chest pain. Comparison: None PA/lateral chest hyperinflated with mild left infrahilar infiltrate/atelectasis. Remaining heart and lungs unremarkable with incidental right base calcified granuloma. Bony thorax intact with osteopenia and mild degenerative changes.
[2024-02-15] MEDS ORDERED: NON-FORMULARY ITEM (Atorvastatin Calcium [Atorvastatin Calcium] 80 MG Tablet) PO SCH (10:00)
[2024-02-15] MEDS ORDERED: NON-FORMULARY ITEM (Gabapentin [Gabapentin] 800 MG Tablet) PO SCH (10:00)
[2024-02-15] MEDS ORDERED: NON-FORMULARY ITEM (Amlodipine Besylate [Amlodipine Besylate] 10 MG Tablet) PO SCH (10:00)
[2024-02-15] MEDS ORDERED: BABY ASPIRIN 81 MG CHEW PO SCH (10:00)
[2024-02-15] MEDS ORDERED: NON-FORMULARY ITEM (Sertraline Hcl [Zoloft] 25 MG Tablet) PO SCH (10:00)
[2024-02-15] MEDS: NORVASC 5 MG PO SCH (10:52)
[2024-02-15] MEDS: ENOXAPARIN SODIUM SQ SCH (10:53)
[2024-02-15] MEDS: ZOCOR 20MG PO SCH (10:53)
[2024-02-15] MEDS: Klor Con PO SCH (10:53)
[2024-02-15] MEDS: ECOTRIN 81 MG PO SCH (10:53)
[2024-02-15] MEDS: Flomax 0.4 MG PO SCH (10:53)
[2024-02-15] MEDS: ZOLOFT 50 MG TABLET PO SCH (10:54)
[2024-02-15] MEDS: Protonix 40MG Tablet PO SCH (10:54)
[2024-02-15] MEDS: PLAVIX Tablet PO SCH (10:54)
[2024-02-15] MEDS: Neurontin PO SCH (10:54)
[2024-02-15] MEDS: SYNTHROID 88 MCG PO SCH (10:54)
[2024-02-15] MEDS: Toprol Xl 100 MG PO SCH (10:59)
--- NOTE | 2024-02-15 13:38 | PCM.NOTE ---
Mr. Aden is a 63 year old male admitted 02/15/24 with pneumonia after experiencing a progressive shortness and breath and non productive cough for the past several days. CXR demonstrates a hyperinflated chest with mild left infrahilar infiltrate/atelectasis. Patient is requiring 2L of oxygen, RA at baseline. Current treatment with Ceftriaxone and Azithromycin. Patient is feeling better today. He states he mostly has chest pain with dry cough and unable to expectorate sputum. Lung sounds are coarse with exp wheezing on auscultation. Plan to continue abx - will add steroids/flutter/IS/Mucinex. Denies fever, abdominal pain, PYLE, dizziness, N/V/D.
[2024-02-15] MEDS: solu-MEDROL 40 MG, Sterile H2O 10 ml 1 ML IV ONE (15:23)
[2024-02-15] MEDS: MUCINEX DM 600/30MG PO SCH (21:01)
[2024-02-15] MEDS: TOPIRAMATE PO SCH (21:01)
[2024-02-15] MEDS: Zithromax 500 MG/ 250 ML NaCl Premix 500 MG/250 ML IVPB IV SCH (21:35)
[2024-02-15] MEDS ORDERED: Mucinex 600MG ER Tabs PO SCH (22:00)
[2024-02-15] MEDS ORDERED: NON-FORMULARY ITEM (Topiramate [Topiramate] 25 MG Tablet) PO SCH (22:00)
[2024-02-15] MEDS ORDERED: solu-MEDROL 40 MG, Sterile H2O 10 ml 1 ML IV SCH (22:00)
--- NOTE | 2024-02-16 05:57 | PCM.NOTE ---
Date and Time: 02/16/24 0552 Subjective Assessment: Mr. MORENO is a 63 year old male with a past medical history significant for hypertension, hyperlipidemia, coronary artery disease, neuropathy and chronic tobacco admitted 02/15/24 with pneumonia after experiencing a progressive shortness and breath and non productive cough for the past several days. CXR d emonstrates a hyperinflated chest with mild left infrahilar infiltrate/atelectasis. Patient is requiring 2L of oxygen, RA at baseline. Current treatment with Ceftriaxone and Azithromycin/steroids/flutter/IS/Mucinex. 02/16/24: Met with patient bedside. Endorses Headache this morning, cough has become more productive but phlegm is still getting stuck in his throat. Denies chest pain. Lung sounds coarse with exp wheezing on auscultation. Dyspnea is improving. - Review of Systems Constitutional: No Symptoms Eyes: No Symptoms Ears, Nose, & Throat: No Symptoms Respiratory: Cough, Short Of Breath Cardiac: No Symptoms Abdominal/Gastrointestinal: No Symptoms Genitourinary Symptoms: No Symptoms Musculoskeletal: No Symptoms Skin: No Symptoms Neurological: No Symptoms Psychological: No Symptoms Endocrine: No Symptoms Hematologic/Lymphatic: No Symptoms Immunological/Allergic: No Symptoms Objective Exam General Appearance: no apparent distress Neurologic Exam: alert, oriented x 3, cooperative Skin Exam: cyanosis Eye Exam: PERRL Ears, Nose, Throat Exam: moist mucous membranes Neck Exam: full range of motion Respiratory Exam: crackles/rales, wheezing Cardiovascular Exam: regular rate/rhythm, normal heart sounds Gastrointestinal/Abdomen Exam: soft, normal bowel sounds Extremity Exam: normal inspection Back Exam: normal inspection Male Genitalia Exam: deferred Rectal Exam: deferred Objective Data Vital Signs: Vital Signs - 24 hr Temp Pulse Resp BP Pulse Ox 02/16/24 04:00 98.1 F 75 16 122/71 96 02/16/24 01:10 57 L 18 93 L 02/16/24 00:00 97.6 F 60 20 112/59 95 02/15/24 19:05 68 20 97 02/15/24 18:57 98.4 F 68 20 150/79 98 02/15/24 16:00 99 F 60 18 145/82 95 02/15/24 13:24 91 L 02/15/24 12:00 97.7 F 52 L 17 129/67 98 02/15/24 11:17 67 18 98 02/15/24 08:00 97.1 F 50 L 17 137/69 97 Pain Assessment - Last Documented Pain Intensity 0 Intake and Output: Intake & Output 02/13/24 02/14/24 02/15/24 02/16/24 11:59 11:59 11:59 11:59 Intake Total 995 948 Output Total 1320 750 Balance -325 198 Weight 68.1 kg Lab Results: Lab Results-Last 24 Hours 02/15/24 02/15/24 02/15/24 Range/Units 04:05 08:17 13:10 Potassium 3.6 (3.5-5.1) mmol/L Magnesium 2.0 (1.6-2.3) mg/dL Troponin I < 0.012 (0.000-0.033) ng/mL 02/15/24 Range/Units 17:00 Potassium 3.7 (3.5-5.1) mmol/L Magnesium (1.6-2.3) mg/dL Troponin I (0.000-0.033) ng/mL Radiology Exams: Radiology Procedures Category Date Time Status CHEST 2 VIEWS (PA AND LAT) Stat Exams 02/14/24 23:59 Completed Multi-Disciplinary Progress Notes: Multi-Disciplinary Progress Notes 02/15/24 13:34 Nutrition Note by Colette Vaca F/u Note: Assessment completed 02/11. Pt now has ulcerative colitis and c.diff. house regular diet with 50% po intake. Labs 02/14= K+ 3.2, alb wnl. Note nutrition consult ordered for 25# weight loss in 1 month (per ). Pt is currently 122%IBW. Due to isolation, sending educational information with evening tray today. Adding ensure 1 can tid with each meal. goal #1) maintain po intake >=50% #2) no weight loss. Will con't to monitor and f/u prn. MICHELINE Rowland Initialized on 02/15/24 13:34 - END OF NOTE Assessment/Plan (1) Pneumonia Current Visit: No Status: Acute Assessment & Plan: CXR showing mil left infrahilar infiltrate/atelectasis -Supplemental Spo2 goal >92%, patient is baseline RA -RT eval with prn duoneb/inh -solumedrol; 40mg bid -continue -smoking cessation advised, patient is ready to quit Code(s): J18.9 - PNEUMONIA, UNSPECIFIED ORGANISM (2) Chest pain Current Visit: Yes Status: Acute Assessment & Plan: -Pleuritic -denies CP today -Trop series WNL -EKG prn for chest pain Code(s): R07.9 - CHEST PAIN, UNSPECIFIED (3) Acute kidney injury Current Visit: No Status: Acute Assessment & Plan: -resolved Code(s): N17.9 - ACUTE KIDNEY FAILURE, UNSPECIFIED (4) Acute metabolic acidosis Current Visit: No Status: Acute Assessment & Plan: -suspect renal cause -will order B-hydroxybutyrate -will check UA -Add bicarb drip -Monitor co2 levels -repeat BMP in 4 hours Code(s): E87.21 - ACUTE METABOLIC ACIDOSIS (5) Cough Current Visit: No Status: Acute Assessment & Plan: -most likely secondary to pnuemonia although cough is dry and could be related to JOHN which is being held -add mucinex -IS/ Flutter Code(s): R05.9 - COUGH, UNSPECIFIED (6) Hypertensive chronic kidney disease with stage 1 through stage 4 chronic kidney disease, or unspecified chronic kidney disease Current Visit: No Status: Acute Assessment & Plan: Blood pressure under suboptimal control, likely exacerbated by stress - Continue bp meds except JOHN - Low Na diet - Monitor blood pressure readings Code(s): I12.9 - HYPERTENSIVE CHRONIC KIDNEY DISEASE W STG 1-4/UNSP CHR KDNY
[2024-02-16 06:13] LABS: Hematocrit 39.8 % (42-50); Hemoglobin 13.5 g/dL (12.5-18.0); Mean Cell Volume 90.5 fL (78-100); Mean Corpuscular Hemoglobin 30.7 pg (26-32); Mean Corpuscular Hgb Concent. 33.9 g/dL (32-36); Mean Platelet Volume 10.5 fL (7.5-11.0); Platelet Count 208 x10^3/uL (150-450); Red Cell Distribution Width 13.9 % (11.5-14.0); White Blood Count 16.2 x10^3/uL (4.0-10.5)
[2024-02-16 07:01] LABS: ALBUMIN 3.4 g/dL (3.5-5.0); ANION GAP 14.2 MEQ/L (5-15); BILIRUBIN,TOTAL 0.5 mg/dL (0.2-1.3); Creatinine 1 1.17 mg/dL (0.66-1.25); EST GLOMERULAR FILTRATION RATE 69.2 ML/MIN; Potassium 4.4 mmol/L (3.5-5.1); Total Protein 6.3 g/dL (6.3-8.2)
[2024-02-16 07:07] LABS: Calcium 8.9 mg/dL (8.4-10.2)
[2024-02-16] MEDS ORDERED: Sodium Bicarbonate 50 MEQ/50 ML VIAL*** 150 MEQ in Dextrose 5%/Water IV Soln. 1000 ML 1... IV SCH (07:30)
[2024-02-16] MEDS: TYLENOL 325 MG PO PRN (07:31)
[2024-02-16 07:38] LABS: A-aADO2 49; ABG POTASSIUM 4.1 (3.5-5.1); ABG SITE RIGHT RADIAL; ALLEN TEST OK? YES; ARTERIAL BLD GAS O2 SATURATION 95.6 % (95-100); ARTERIAL BLOOD GAS BASE EXCESS -6.5 (-2.0-2.0); ARTERIAL BLOOD GAS FIO2 21 %; ARTERIAL BLOOD GAS PCO2 27 mmHg (35-45); ARTERIAL BLOOD GAS PO2 67 mmHg (75-100); CARBOXYHEMOGLOBIN 0.9 % THgb (0.0-6.9); HCO3- 16.7 (22-28); Methhemoglobin 0.8 % (1.4-1.5); paO2 pAO1 0.58
[2024-02-16 08:32] LABS: ANION GAP 13.6 MEQ/L (5-15); Creatinine 1 1.09 mg/dL (0.66-1.25); EST GLOMERULAR FILTRATION RATE 75.3 ML/MIN; Potassium 4.7 mmol/L (3.5-5.1)
[2024-02-16] MEDS: SODIUM BICARBONATE PO SCH (08:46)
[2024-02-16] MEDS: solu-MEDROL 40 MG, Sterile H2O 10 ml 1 ML IV SCH (08:47)
[2024-02-16] MEDS: Sodium Bicarbonate 50 MEQ/50 ML VIAL*** 150 MEQ in Dextrose 5%/Water IV Soln. 1000 ML 1... IV SCH (09:57)
[2024-02-16 14:16] LABS: Appearance Clear (Clear); Bacteria None Seen /HPF (None Seen); Bilirubin Negative (Negative); Blood Negative (Negative); Epithelial Cells None Seen /HPF (None Seen); Glucose, Urine Negative (Negative); Hyaline Casts NONE SEEN /LPF (0-2); Ketones Negative (Negative); Leukocyte Esterase Negative (Negative); Nitrite Negative (Negative); Ph 5.5 (4.6-8.0); Protein,Urine Dip Negative (Negative); RBC 0-2 /HPF (0-5); Urobilinogen 0.2 mg/dL (0.2); WBC 0-2 /HPF (0-5)
[2024-02-16 14:17] LABS: ADD URINE CULTURE? NO (NO)
[2024-02-16 17:21] LABS: ANION GAP 9.5 MEQ/L (5-15); Calcium 8.8 mg/dL (8.4-10.2); Creatinine 1 1.29 mg/dL (0.66-1.25); EST GLOMERULAR FILTRATION RATE 61.5 ML/MIN
[2024-02-16 17:23] LABS: Potassium 3.7 mmol/L (3.5-5.1)
[2024-02-17 05:06] LABS: Hematocrit 37.6 % (42-50); Hemoglobin 12.8 g/dL (12.5-18.0); Mean Cell Volume 89.5 fL (78-100); Mean Corpuscular Hemoglobin 30.5 pg (26-32); Mean Platelet Volume 10.6 fL (7.5-11.0); Platelet Count 232 x10^3/uL (150-450); Red Cell Distribution Width 14.4 % (11.5-14.0); White Blood Count 16.8 x10^3/uL (4.0-10.5)
[2024-02-17 05:20] LABS: ALBUMIN 3.3 g/dL (3.5-5.0); ANION GAP 10.1 MEQ/L (5-15); BILIRUBIN,TOTAL 0.3 mg/dL (0.2-1.3); Calcium 8.4 mg/dL (8.4-10.2); Creatinine 1 1.04 mg/dL (0.66-1.25); EST GLOMERULAR FILTRATION RATE 79.7 ML/MIN; Potassium 3.9 mmol/L (3.5-5.1); Total Protein 6.1 g/dL (6.3-8.2)
--- NOTE | 2024-02-17 05:32 | PCM.NOTE ---
Date and Time: 02/17/24528 Subjective Assessment: Mr. MORENO is a 63 year old male with a past medical history significant for hypertension, hyperlipidemia, coronary artery disease, neuropathy and chronic tobacco admitted 02/15/24 with pneumonia after experiencing a progressive shortness and breath and non productive cough with pleuritic chest pain for the past several days. CXR demonstrates a hyperinflated chest with mild left infrahilar infiltrate/atelectasis. Patient is requiring 2L of oxygen, RA at baseline. Current treatment with Ceftriaxone and Azithromycin/steroids/flutter/IS/Mucinex. Patient has metabolic acidosis, suspect RTA, bicarb drip initiated. 02/17/24 Met with patient bedside. Endorses improvement in dyspnea. Cough is still non productive. Feeling better overall today. Qualified for home oxygen. Lung sound with improved aeration and exp wheezing. Continue abx/steroids, most likely will discharge tomorrow. Denies fever,cp, abdominal pain, PYLE, dizziness, N/V/D. - Review of Systems Constitutional: No Symptoms Eyes: No Symptoms Ears, Nose, & Throat: No Symptoms Respiratory: Cough, Short Of Breath Cardiac: No Symptoms Abdominal/Gastrointestinal: No Symptoms Genitourinary Symptoms: No Symptoms Musculoskeletal: No Symptoms Skin: No Symptoms Neurological: No Symptoms Psychological: No Symptoms Endocrine: No Symptoms Hematologic/Lymphatic: No Symptoms Immunological/Allergic: No Symptoms Objective Exam General Appearance: no apparent distress Neurologic Exam: alert, oriented x 3, cooperative Skin Exam: normal color Eye Exam: PERRL Ears, Nose, Throat Exam: moist mucous membranes Neck Exam: full range of motion Respiratory Exam: crackles/rales, wheezing Cardiovascular Exam: regular rate/rhythm, normal peripheral pulses Gastrointestinal/Abdomen Exam: soft, normal bowel sounds Extremity Exam: normal inspection Back Exam: normal inspection Male Genitalia Exam: deferred Rectal Exam: deferred Objective Data Vital Signs: Vital Signs - 24 hr Temp Pulse Resp BP Pulse Ox 02/17/24 04:00 97.8 F 66 15 128/68 96 02/17/24 00:00 75 02/16/24 20:00 99.5 F 87 19 123/67 97 02/16/24 19:15 83 18 96 02/16/24 16:00 99.3 F 91 H 20 135/74 97 02/16/24 13:04 87 20 96 04/30/24 11:45 96.9 F 82 22 118/70 96 02/16/24 08:45 96 02/16/24 07:40 96 02/16/24 07:02 70 16 96 02/16/24 06:54 98.2 F 62 15 137/71 95 Pain Assessment - Last Documented Pain Intensity 0 Pain Scale Used 0-10 Pain Scale Intake and Output: Intake & Output 02/14/24 02/15/24 02/16/24 02/17/24 11:59 11:59 11:59 11:59 Intake Total 995 1488 4019 Output Total 4727 739 2472 Balance -478 050 6556 Weight 68.1 kg Lab Results: Lab Results-Last 24 Hours 02/16/24 02/16/24 02/16/24 Range/Units 06:12 06:12 06:20 WBC 16.2 H (4.0-10.5) x10^3/uL RBC 4.40 (4.1-5.6) x10^6/uL Hgb 13.5 (12.5-18.0) g/dL Hct 39.8 L (42-50) % MCV 90.5 (78-100) fL MCH 30.7 (26-32) pg MCHC 33.9 (32-36) g/dL RDW 13.9 (11.5-14.0) % Plt Count 208 (150-450) x10^3/uL MPV 10.5 (7.5-11.0) fL Puncture Site pCO2 (35-45) mmHg pO2 (75-100) mmHg Base Excess (-2.0-2.0) O2 Saturation (94-100) g/dF ABG pH (7.35-7.45) ABG HCO3 (22-28) ABG O2 Sat (Measured) (95-100) % Ash Test A-a Gradient a/A Ratio Hemoglobin Carboxyhemoglobin (0.0-6.9) % THgb Methemoglobin (1.4-1.5) % Temperature C POC O2 Flow Rate % Sodium 141 141 (135-145) mmol/L Potassium 4.4 4.7 (3.5-5.1) mmol/L Chloride 117 H 117 H (98-107) mmol/L Carbon Dioxide 15 L* 14 L* (22-30) mmol/L Anion Gap 14.2 13.6 (5-15) MEQ/L BUN 24 H 23 H (9-20) mg/dL Creatinine 1.17 1.09 (0.66-1.25) mg/dL Estimated GFR 69.2 75.3 ML/MIN Glucose 125 H 124 H (74-106) mg/dL Calcium 8.9 9.0 (8.4-10.2) mg/dL Total Bilirubin 0.50 (0.2-1.3) mg/dL AST 18 (17-59) U/L ALT 18 (0-50) U/L Alkaline Phosphatase 89 (38-126) U/L Serum Total Protein 6.3 (6.3-8.2) g/dL Albumin 3.4 L (3.5-5.0) g/dL Urine Color (Yellow) Urine Appearance (Clear) Urine pH (4.6-8.0) Ur Specific [place] (1.005-1.030) Urine Protein (Negative) Urine Glucose (UA) (Negative) mg/dL Urine Ketones (Negative) Urine Blood (Negative) Urine Nitrite (Negative) Urine Bilirubin (Negative) Urine Urobilinogen (0.2) mg/dL Ur Leukocyte Esterase (Negative) U Hyaline Cast (Auto) (0-2) /LPF Urine Microscopic RBC (0-5) /HPF Urine Microscopic WBC (0-5) /HPF Ur Epithelial Cells (None Seen) /HPF Urine Bacteria (None Seen) /HPF Urine Culture Reflexed (NO) 02/16/24 02/16/24 02/16/24 Range/Units 07:30 13:57 17:00 WBC (4.0-10.5) x10^3/uL RBC (4.1-5.6) x10^6/uL Hgb (12.5-18.0) g/dL Hct (42-50) % MCV (78-100) fL MCH (26-32) pg MCHC (32-36) g/dL RDW (11.5-14.0) % Plt Count (150-450) x10^3/uL MPV (7.5-11.0) fL Puncture Site RIGHT RADIAL pCO2 27 L (35-45) mmHg pO2 67 L (75-100) mmHg Base Excess -6.5 L (-2.0-2.0) O2 Saturation 94.0 (94-100) g/dF ABG pH 7.40 (7.35-7.45) ABG HCO3 16.7 L* (22-28) ABG O2 Sat (Measured) 95.6 (95-100) % Ash Test YES A-a Gradient 49 a/A Ratio 0.58 Hemoglobin 14.0 Carboxyhemoglobin 0.9 (0.0-6.9) % THgb Methemoglobin 0.8 L (1.4-1.5) % Temperature 37.0 C POC O2 Flow Rate 21 % Sodium 139 (135-145) mmol/L Potassium 4.1 3.7 D (3.5-5.1) mmol/L Chloride 112 H (98-107) mmol/L Carbon Dioxide 21 L (22-30) mmol/L Anion Gap 9.5 (5-15) MEQ/L BUN 25 H (9-20) mg/dL Creatinine 1.29 H (0.66-1.25) mg/dL Estimated GFR 61.5 ML/MIN Glucose 149 H (74-106) mg/dL Calcium 8.8 (8.4-10.2) mg/dL Total Bilirubin (0.2-1.3) mg/dL AST (17-59) U/L ALT (0-50) U/L Alkaline Phosphatase (38-126) U/L Serum Total Protein (6.3-8.2) g/dL Albumin (3.5-5.0) g/dL Urine Color Yellow (Yellow) Urine Appearance Clear (Clear) Urine pH 5.5 (4.6-8.0) Ur Specific [place] 1.020 (1.005-1.030) Urine Protein Negative (Negative) Urine Glucose (UA) Negative (Negative) mg/dL Urine Ketones Negative (Negative) Urine Blood Negative (Negative) Urine Nitrite Negative (Negative) Urine Bilirubin Negative (Negative) Urine Urobilinogen 0.2 (0.2) mg/dL Ur Leukocyte Esterase Negative (Negative) U Hyaline Cast (Auto) NONE SEEN (0-2) /LPF Urine Microscopic RBC 0-2 (0-5) /HPF Urine Microscopic WBC 0-2 (0-5) /HPF Ur Epithelial Cells None Seen (None Seen) /HPF Urine Bacteria None Seen (None Seen) /HPF Urine Culture Reflexed NO (NO) 02/17/24 Range/Units 04:45 WBC 16.8 H (4.0-10.5) x10^3/uL RBC 4.20 (4.1-5.6) x10^6/uL Hgb 12.8 (12.5-18.0) g/dL Hct 37.6 L (42-50) % MCV 89.5 (78-100) fL MCH 30.5 (26-32) pg MCHC 34.0 (32-36) g/dL RDW 14.4 H (11.5-14.0) % Plt Count 232 (150-450) x10^3/uL MPV 10.6 (7.5-11.0) fL Puncture Site pCO2 (35-45) mmHg pO2 (75-100) mmHg Base Excess (-2.0-2.0) O2 Saturation (94-100) g/dF ABG pH (7.35-7.45) ABG HCO3 (22-28) ABG O2 Sat (Measured) (95-100) % Ash Test A-a Gradient a/A Ratio Hemoglobin Carboxyhemoglobin (0.0-6.9) % THgb Methemoglobin (1.4-1.5) % Temperature C POC O2 Flow Rate % Sodium (135-145) mmol/L Potassium (3.5-5.1) mmol/L Chloride (98-107) mmol/L Carbon Dioxide (22-30) mmol/L Anion Gap (5-15) MEQ/L BUN (9-20) mg/dL Creatinine (0.66-1.25) mg/dL Estimated GFR ML/MIN Glucose (74-106) mg/dL Calcium (8.4-10.2) mg/dL Total Bilirubin (0.2-1.3) mg/dL AST (17-59) U/L ALT (0-50) U/L Alkaline Phosphatase (38-126) U/L Serum Total Protein (6.3-8.2) g/dL Albumin (3.5-5.0) g/dL Urine Color (Yellow) Urine Appearance (Clear) Urine pH (4.6-8.0) Ur Specific [place] (1.005-1.030) Urine Protein (Negative) Urine Glucose (UA) (Negative) mg/dL Urine Ketones (Negative) Urine Blood (Negative) Urine Nitrite (Negative) Urine Bilirubin (Negative) Urine Urobilinogen (0.2) mg/dL Ur Leukocyte Esterase (Negative) U Hyaline Cast (Auto) (0-2) /LPF Urine Microscopic RBC (0-5) /HPF Urine Microscopic WBC (0-5) /HPF Ur Epithelial Cells (None Seen) /HPF Urine Bacteria (None Seen) /HPF Urine Culture Reflexed (NO) Multi-Disciplinary Progress Notes: Multi-Disciplinary Progress Notes 02/16/24 11:33 Case Management Note by Darby Hensley S/W PATIENT. HE CONTINUES TO DENY ANY NEW NEEDS AT TIME OF DC. HE PLANS TO RETURN HOME TO HIS PLOF AT TIME OF DC Initialized on 02/16/24 11:33 - END OF NOTE Assessment/Plan (1) Pneumonia Current Visit: No Status: Acute Assessment & Plan: CXR showing mil left infrahilar infiltrate/atelectasis -Supplemental Spo2 goal >92%, patient is baseline RA -RT eval with prn duoneb/inh -solumedrol; 40mg bid -continue -smoking cessation advised, patient is ready to quit 02/16: -Qualified for home oxygen at 2L -Continue IP ceftriaxone/azith - convert to cefpodoxime on discharge -Solumedrol qd -prednisone tomorrow Code(s): J18.9 - PNEUMONIA, UNSPECIFIED ORGANISM (2) Chest pain Current Visit: Yes Status: Acute Assessment & Plan: -Pleuritic -denies CP today -Trop series WNL -EKG prn for chest pain Code(s): R07.9 - CHEST PAIN, UNSPECIFIED (3) Acute kidney injury Current Visit: No Status: Acute Assessment & Plan: -resolved Code(s): N17.9 - ACUTE KIDNEY FAILURE, UNSPECIFIED (4) Acute metabolic acidosis Current Visit: No Status: Acute Assessment & Plan: -suspect renal cause -will order B-hydroxybutyrate -will check UA -Add bicarb drip -Monitor co2 levels -repeat BMP in 4 hours 02/16: -Resolved Code(s): E87.21 - ACUTE METABOLIC ACIDOSIS (5) Cough Current Visit: No Status: Acute Assessment & Plan: -most likely secondary to pnuemonia although cough is dry and could be related to JOHN which is being held -add mucinex -IS/ Flutter Code(s): R05.9 - COUGH, UNSPECIFIED (6) Hypertensive chronic kidney disease with stage 1 through stage 4 chronic kidney disease, or unspecified chronic kidney disease Current Visit: No Status: Acute Assessment & Plan: Blood pressure under suboptimal control, likely exacerbated by stress - Continue bp meds except JOHN - Low Na diet - Monitor blood pressure readings Code(s): J18.9 - PNEUMONIA, UNSPECIFIED ORGANISM (2) Chest pain Current Visit: Yes Status: Acute Code(s): R07.9 - CHEST PAIN, UNSPECIFIED (3) Acute kidney injury Current Visit: No Status: Acute Code(s): N17.9 - ACUTE KIDNEY FAILURE, UNSPECIFIED (4) Acute metabolic acidosis Current Visit: No Status: Acute Code(s): E87.21 - ACUTE METABOLIC ACIDOSIS (5) Cough Current Visit: No Status: Acute Code(s): R05.9 - COUGH, UNSPECIFIED (6) Hypertensive chronic kidney disease with stage 1 through stage 4 chronic kidney disease, or unspecified chronic kidney disease Current Visit: No Status: Acute Code(s): I12.9 - HYPERTENSIVE CHRONIC KIDNEY DISEASE W STG 1-4/UNSP CHR KDNY
[2024-02-18 04:41] LABS: Hematocrit 37.2 % (42-50); Hemoglobin 12.5 g/dL (12.5-18.0); Mean Cell Volume 90.7 fL (78-100); Mean Corpuscular Hemoglobin 30.5 pg (26-32); Mean Corpuscular Hgb Concent. 33.6 g/dL (32-36); Mean Platelet Volume 10.8 fL (7.5-11.0); Platelet Count 255 x10^3/uL (150-450); Red Cell Distribution Width 14.6 % (11.5-14.0); White Blood Count 18.2 x10^3/uL (4.0-10.5)
[2024-02-18 04:58] LABS: ALBUMIN 3.4 g/dL (3.5-5.0); ANION GAP 8.1 MEQ/L (5-15); BILIRUBIN,TOTAL 0.2 mg/dL (0.2-1.3); Calcium 8.6 mg/dL (8.4-10.2); Creatinine 1 1.15 mg/dL (0.66-1.25); EST GLOMERULAR FILTRATION RATE 70.6 ML/MIN; Potassium 3.6 mmol/L (3.5-5.1); Total Protein 5.9 g/dL (6.3-8.2)
[2024-02-18] MEDS: DELTASONE 20 MG PO SCH (09:18)
[2024-02-18] MEDS ORDERED: solu-MEDROL 40 MG, Sterile H2O 10 ml 1 ML IV SCH (10:00)
[2024-02-18 11:53] VITALS: BP 129/91; TEMP 98.3
--- NOTE | 2024-02-18 12:45 | PCM.DS ---
Discharge Summary Date of Admission: 02/16/24 05:52 Date of Discharge: 02/18/24 Admitting Physician: CORIN ADAMSON MD Primary Care Provider: NO FAMILY DOCTOR Allergies Allergies No Known Drug Allergies Allergy (Verified 02/14/24 23:15) Hospital Summary - Hospital Course Hospital Course: Mr. MORENO is a 63 year old male with a past medical history significant for hypertension, hyperlipidemia, coronary artery disease, neuropathy and chronic tobacco admitted 02/15/24 with pneumonia after experiencing a progressive shortness and breath and non productive cough with pleuritic chest pain for the past several days. CXR demonstrates a hyperinflated chest with mild left infrahilar infiltrate/atelectasis. IP requiring 2L of oxygen, now at RA which is his baseline. IP treatment with Ceftriaxone and Azithromycin/steroids/flutter/IS/Mucinex. Metabolic acidosis, suspect RTA, corrected with bicarb drip. Dyspnea and cough have improved and stable for discharge. Will send with nebulizer machine and duoneb solution, prednisone, and cefpodoxime. Advised sm oking cessation, patient states he is ready to quit, would like to try nicotine patches which I will send to pharmacy. Advised follow up with PCP. Discharge Note New Diagnosis: pneumonia New Medications: Prednisone/cefpodoxime/ DuoNebs Follow Up: PCP Results pending: Sputum culture Latest Assessment & Plan (1) Pneumonia Current Visit: No Status: Acute Assessment & Plan: CXR showing mil left infrahilar infiltrate/atelectasis -Supplemental Spo2 goal >92%, patient is baseline RA -RT eval with prn duoneb/inh -solumedrol; 40mg bid -continue -smoking cessation advised, patient is ready to quit 02/16: -Qualified for home oxygen at 2L -Continue IP ceftriaxone/azith - convert to cefpodoxime on discharge -Solumedrol qd -prednisone tomorrow 02/17: -On RA, no longer qualifies for home oxygen -Will send home with nebulizer machine/duonebs/prednisone/cefpodoxime Code(s): J18.9 - PNEUMONIA, UNSPECIFIED ORGANISM (2) Chest pain Current Visit: Yes Status: Acute Assessment & Plan: -Pleuritic -denies CP today -Trop series WNL -EKG prn for chest pain Code(s): R07.9 - CHEST PAIN, UNSPECIFIED (3) Acute kidney injury Current Visit: No Status: Acute Assessment & Plan: -resolved Code(s): N17.9 - ACUTE KIDNEY FAILURE, UNSPECIFIED (4) Acute metabolic acidosis Current Visit: No Status: Acute Assessment & Plan: -suspect renal cause -will order B-hydroxybutyrate -will check UA -Add bicarb drip -Monitor co2 levels -repeat BMP in 4 hours 02/16: -Resolved Code(s): E87.21 - ACUTE METABOLIC ACIDOSIS (5) Cough Current Visit: No Status: Acute Assessment & Plan: -most likely secondary to pnuemonia although cough is dry and could be related to JOHN which is being held -add mucinex -IS/ Flutter Code(s): R05.9 - COUGH, UNSPECIFIED (6) Hypertensive chronic kidney disease with stage 1 through stage 4 chronic kidney disease, or unspecified chronic kidney disease Current Visit: No Status: Acute Assessment & Plan: Blood pressure under suboptimal control, likely exacerbated by stress - Continue bp meds except JOHN - Low Na diet - Monitor blood pressure readings Code(s): J18.9 - PNEUMONIA, UNSPECIFIED ORGANISM I spent 35 minutes [id number] with the patient on the day of discharge performing discharge exam, discussing hospital stay and discharge instructions with patient and caregivers, preparation of discharge records, prescriptions & referral forms and addressing any questions/concerns the patient had as documented above. - Vitals & Intake/Output Vital Signs: Vital Signs Temperature 98.3 F 02/18/24 11:52 Pulse Rate 77 02/18/24 11:52 Respiratory Rate 22 02/18/24 11:52 Blood Pressure 129/91 02/18/24 11:52 O2 Sat by Pulse Oximetry 97 02/18/24 11:52 Intake & Output: Intake & Output 02/16/24 02/17/24 02/18/24 02/19/24 11:59 11:59 11:59 11:59 Intake Total 1488 4599 1979 Output Total 430 2350 Balance 738 1579 1979 - Lab Result Diagrams: 02/18/24 04:15 02/18/24 04:15 Lab Results-Last 24 Hrs: Lab Results-Last 24 Hours 02/18/24 02/18/24 Range/Units 04:15 04:15 WBC 18.2 H (4.0-10.5) x10^3/uL RBC 4.10 (4.1-5.6) x10^6/uL Hgb 12.5 (12.5-18.0) g/dL Hct 37.2 L (42-50) % MCV 90.7 (78-100) fL MCH 30.5 (26-32) pg MCHC 33.6 (32-36) g/dL RDW 14.6 H (11.5-14.0) % Plt Count 255 (150-450) x10^3/uL MPV 10.8 (7.5-11.0) fL Sodium 141 (135-145) mmol/L Potassium 3.6 (3.5-5.1) mmol/L Chloride 111 H (98-107) mmol/L Carbon Dioxide 25 (22-30) mmol/L Anion Gap 8.1 (5-15) MEQ/L BUN 23 H (9-20) mg/dL Creatinine 1.15 (0.66-1.25) mg/dL Estimated GFR 70.6 ML/MIN Glucose 114 H (74-106) mg/dL Calcium 8.6 (8.4-10.2) mg/dL Total Bilirubin 0.20 (0.2-1.3) mg/dL AST 18 (17-59) U/L ALT 16 (0-50) U/L Alkaline Phosphatase 78 (38-126) U/L Serum Total Protein 5.9 L (6.3-8.2) g/dL Albumin 3.4 L (3.5-5.0) g/dL Micro Results-Entire Visit: Microbiology 02/14/24 00:15 Blood Culture - Preliminary Blood - Procedures and Test Procedures and Tests throughout Hospitalization: Therapy Orders & Screens 02/15/24 00:09 Respiratory Therapy Assessment DAILY Comment: 02/15/24 02:03 EKG REPEAT IN AM Comment: Oxygen Nasal Cannula 2 lpm Comment: 02/15/24 13:24 Flutter Therapy UD Comment: Diagnosis: cough Incentive Spirometry UD Comment: Diagnosis: cough 02/17/24 08:27 Qualify for Home Oxygen TODAY Comment: Diagnosis: cough Discharge Exam General Appearance: no apparent distress Neurologic Exam: alert, oriented x 3, cooperative Eye Exam: PERRL Ears, Nose, Throat Exam: normal ENT inspection, moist mucous membranes Neck Exam: full range of motion Respiratory Exam: diminished breath sounds, wheezing Cardiovascular Exam: regular rate/rhythm, normal heart sounds Gastrointestinal/Abdomen Exam: soft, normal bowel sounds Male Genitalia Exam: deferred Rectal Exam: deferred Back Exam: normal inspection Extremity Exam: normal inspection Skin Exam: normal color Final Diagnosis/Problem List - Final Discharge Diagnosis/Problem (1) Pneumonia Current Visit: No Status: Acute Code(s): J18.9 - PNEUMONIA, UNSPECIFIED ORGANISM (2) Chest pain Current Visit: Yes Status: Resolved Code(s): R07.9 - CHEST PAIN, UNSPECIFIED (3) Acute kidney injury Current Visit: No Status: Resolved Code(s): N17.9 - ACUTE KIDNEY FAILURE, UNSPECIFIED (4) Acute metabolic acidosis Current Visit: No Status: Resolved Code(s): E87.21 - ACUTE METABOLIC ACIDOSIS (5) Cough Current Visit: No Status: Resolved Code(s): R05.9 - COUGH, UNSPECIFIED (6) Hypertensive chronic kidney disease with stage 1 through stage 4 chronic kidney disease, or unspecified chronic kidney disease Current Visit: No Status: Chronic Code(s): I12.9 - HYPERTENSIVE CHRONIC KIDNEY DISEASE W STG 1-4/UNSP CHR KDNY - Discharge Disposition: Home, Self-Care Condition: Stable Prescriptions: New Prednisone 20 mg [Deltasone 20 mg] 20 mg PO BID 5 Days #10 tablet Albuterol/Ipratropium 3ml Neb* [DUONEB 0.5-3 MG/3 ml Neb] 3 ml IH Q6HPRN PRN 30 Days #120 amp PRN Reason: Shortness Of Breath/Wheezing Guaifenesin Dextromethorphan [MUCINEX Dm 600/30MG] 1 tablet PO BID 7 Days #14 tablet PANTOPRAZOLE 40 mg Tablet [Protonix 40MG Tablet] 40 mg PO DAILY 14 Days #14 tablet Cefpodoxime Proxetil 200 mg [Vantin 200 mg] 200 mg PO BID 10 Days #20 tablet Continue Atorvastatin Calcium 1 tab PO DAILY Topiramate 25 mg PO HS Tamsulosin HCl 0.4 mg [Flomax 0.4 MG] 1 tab PO DAILY Sertraline HCl [Zoloft] 25 mg PO DAILY Metoprolol Succinate 100 mg [Toprol Xl 100 MG] 100 mg PO DAILY Lisinopril 10 mg [Zestril 10 MG] 1 tab PO DAILY Gabapentin 800 mg PO TID Clopidogrel Bisulfate [Clopidogrel] 1 tab PO DAILY Aspirin 1 tab PO DAILY Albuterol Sulfate [Proair Respiclick] 2 puffs IH Q6H PRN PRN PRN Reason: Shortness Of Breath Amlodipine Besylate 10 mg PO DAILY Levothyroxine Sodium 88 Mcg [Synthroid 88 Mcg] 1 tab PO DAILY Instructions: Pneumonia, Adult (DC) Additional Instructions: Melinda Martínez MD office will call patient with an appt. YOUR NEBULIZER MACHINE WAS ORDERED THRU [employer] ([employer]) THEY WILL BE CALLING YOU TO VERIFY THAT THEY GOT THE ORDER AND THEN THEY WILL OVERNIGHT THIS TO YOUR HOME. IF YOU NEED TO FOLLOW UP YOU CAN CALL THEM AT [phone]. THE MEDICATION FOR THE NEB MACHINE IS AT [facility] Follow up with: DOCTOR,NO FAMILY [Primary Care Provider] - Forms: Discharge Instructions
[2024-02-18 13:38] VITALS: PULSE 74; RESP 18; O2SAT 95
== END 2024-02-18 14:51 | disposition home or self-care (01) | DRG 194 ==
LOC: ED 23:13 → MED SURG 02-15 01:54 → OBSVTOIN 02-16 05:52
PROVIDERS: ADMIT Internal Medicine Nephrology; ATTEND Internal Medicine Nephrology
DX: J18.9 Pneumonia, unspecified organism (principal); E87.21 Acute metabolic acidosis; N17.9 Acute kidney failure, unspecified; R07.9 Chest pain, unspecified; I12.9 Hypertensive chronic kidney disease with stage 1 through stage 4 chronic kidney disease, or unspecified chronic kidney disease; N18.9 Chronic kidney disease, unspecified; I25.10 Atherosclerotic heart disease of native coronary artery without angina pectoris; E78.5 Hyperlipidemia, unspecified; F17.200 Nicotine dependence, unspecified, uncomplicated; R05.9 Cough, unspecified; I25.2 Old myocardial infarction; Z79.899 Other long term (current) drug therapy
CPT/HCPCS: 0241U; 36000; 36415; 36600; 71046; 80048; 80053; 81001; 82010; 82375; 82803; 82805; 83735; 84132; 84484; 85025; 85027; 87040; 87651; 93005; 93041; 93268; 94640; 94667; 94668; 94760; 94762; 99285; G0378; Q3014; J0456; J0696; J1650; J2919; J7609; A9270-GY